=== PATIENT | male | born 1990 | race Caucasian/White ===

== ENCOUNTER 2024-03-02 07:31 | Emergency (ER) | payer SELFPAY ==
[2024-03-02 07:36] VITALS: BP 152/93
--- NOTE | 2024-03-02 07:48 | ED.GENMED ---
History of Present Illness
General
Chief Complaint: Throat Problem
Time Seen by Provider: 03/02/24 07:41
History of Present Illness
History of Present Illness:
33-year-old otherwise healthy male presents to the emergency department for eval of sore throat difficulty swallowing for the past 2 days. Denies any coughing or nasal congestion. Did have low-grade fevers last night. Has not taken any medication
for symptom control.
Review of Systems
Review of Systems
Allergies reviewed?: Yes
All Other Systems: ROS reviewed and negative except as documented in HPI and ROS
Phy Exam
Physical Exam
Physical Exam:
GEN: Well appearing, NAD, WDWN
HEENT: Oral mucosa moist, no scleral icterus. Moderate tonsillar hypertrophy with exudates, beefy erythema of the soft palate and uvula as well as tonsillar bed, + cervical adenopathy
Cardiac: Regular rate
Lung: No respiratory distress, no tachypnea
MSK: No gross deformity or injuries
Skin: Good color, no pallor or jaundice, no rashes
Neuro: AO x3, moves all extremities freely
Psych: Calm, cooperative
Course
Orders/Labs/Results
Orders:
Orders
03/02/24 07:48
Dexamethasone Pf [Decadron] 10 mg PO NOW STA
03/02/24 07:57
Rapid Strep Group A Urgent
ROBERTO Source: Throat/Pharynx
Specimen Description:
Date Specimen was Collected: 03/02/24
Time Specimen was Collected: 07:55
Vital Signs
Initial and Last Documented VS:
Initial Vital Signs
Temp Pulse Resp BP Pulse Ox
99.8 F 94 16 152/93 98
03/02/24 07:36 03/02/24 07:36 03/02/24 07:36 03/02/24 07:36 03/02/24 07:36
Last Documented Vital Signs
Temp Pulse Resp BP Pulse Ox
99.8 F 94 16 152/93 98
03/02/24 07:36 03/02/24 07:36 03/02/24 07:36 03/02/24 07:36 03/02/24 07:59
MDM/Problems Addressed
MDM/Problems Addressed:
Exam consistent with strep pharyngitis, no clinical evidence for peritonsillar abscess or retropharyngeal abscess. Will treat empirically with antibiotics, strep culture sent for completeness
*Critical Care Note
Total Time (30-74mins, 75-104mins- exclusive of procedures): Not Applicable
ED Attending Note
-
Portions of this chart may have been created with voice recognition software.� Occasional wrong word or��sound alike� substitutions may have occurred due to the inherent limitations of voice recognition software.
Discharge Plan
Departure
Patient Disposition: Home (Routine Discharge)
Date of Disposition: 03/02/24
Time of Disposition: 07:50
Patient with high blood pressure during this ER visit?: No
Discharge Problem:
Acute streptococcal pharyngitis
Instructions: Strep Throat (DC)
Prescriptions:
New
amoxicillin 500 mg tablet
500 mg PO BID 10 Days Qty: 20 0RF
Interventions
Interventions:
*Risk Screen - Suicide Last Done: 03/02/24 08:04
*General Assessment Last Done: 03/02/24 08:04
*ED COVID-19 Vaccine History Last Done: 03/02/24 07:36
*Nursing Disposition Last Done: 03/02/24 08:04
ED-EENT Assessment Last Done: 03/02/24 07:59
ED- Pulmonary Assessment Last Done: 03/02/24 07:59
Discharge Date and Time
Discharge Date/Time: 03/02/24 08:05
Print Language: DUTCH
[2024-03-02] MEDS: DECADRON 10 MG PO (07:55)
== END 2024-03-02 08:05 | disposition home or self-care (01) ==
LOC: EMR 07:31
PROVIDERS: EMERGENCY PHYSICIAN Emergency Medicine
DX: J02.0 Streptococcal pharyngitis (principal)
CPT/HCPCS: 99282; 87070; 87880